=== PATIENT | female | born 1960 | race Caucasian/White ===

== ENCOUNTER 2022-10-30 16:19 | Outpatient (REF) | payer OTHER, SELFPAY ==
--- NOTE | ~2022-10-30 | XR_ITS ---
EXAMINATION: XR SHOULDER, LEFT CLINICAL INFORMATION: Left shoulder pain. COMPARISON: None TECHNIQUE: 3 views of the left shoulder. FINDINGS: There is mild loss of left AC joint space with minimal periarticular superior spurring. The glenohumeral joint space is maintained normal. No visible acute fracture, dislocation or subluxation seen. XR/XR shoulder LT min 2V IMPRESSION: Mild degenerative changes left A.C. joint. No visible acute fracture or dislocation seen.
== END 2022-10-30 16:20 | disposition home or self-care (01) ==
LOC: HO.HOSX 16:19
PROVIDERS: Visit Provider Orthopaedic Surgery
DX: M75.42 Impingement syndrome of left shoulder (principal)
CPT/HCPCS: 73030

== ENCOUNTER 2023-01-16 07:00 | Outpatient (RCR) | payer OTHER, SELFPAY ==
--- NOTE | 2022-11-07 07:57 | MHC.PT.EP ---
[facility] [place] Office [place] [facility] [place] Office [address] Finch [address] [phone] F: [phone] F: [phone] F: [phone] F: [phone] Physical Therapy Plan of Care Date of Evaluation: Date of Surgery: Diagnosis: imingement syndrome, L shoulder Assessment: 62 y/o RHD female referred to PT with L shoulder impingement. Onset of L shoulder pain after a fall on outstretched arm resulting in pain and difficulty with reaching overhead, reaching behind back, reaching overhead, sleeping, dressing and lifting. Examination shows decreased L shoulder ROM and strength, increased pain at AC joint and suprapsinatus, increased tissue tension, and impaired postural awareness. Recommend 2x/week for 6 weeks to address impairments, implement HEP, and optimize functional mobility. Frequency and Duration: The patient will be seen 2x/week for 6 weeks Short Term Goals: 3 weeks COmpliant with HEP Improve L shoulder flexion to 125 Excel Vba Developer Goals: 6 weeks I with HEP and self management of sx Pt will improve L shoulder flexion ROM to 140 to facilitate reaching overhead Pt will reports 50% decrease in pain overall (IR 2-10) Pt will demonstrate L shoulder strength to 4/5 to facilitate lifting Treatment Plan: Modalities to reduce pain, spasms and effusion. Manual therapy to restore motion and function. Therapeutic exercise to improve strength and flexibility. Neuromuscular re-education for posture and balance. Therapeutic activities to return to functional activities of daily living. Electronically signed by: Leena Bradley PT Please sign and return to therapist. Thank you for your referral.
--- NOTE | 2023-02-16 15:03 | MHC.PT.DC ---
[facility] [place] [facility] [place] [facility] [place] Office [address] Claudette Finch [address] [phone] F: [phone] F: [phone] F: [phone] F: [phone] Physical Therapy Discharge Report Diagnosis: imingement syndrome, L shoulder Date of Surgery: Date of Evaluation: 11/07/22 Date of Discharge: 02/16/23 Treatments to Date: 14 Cancellations to Date: 1 No Shows to Date: 0 Discharge Status: Improved Function Independent with HEP Discharge Summary: Overall pt has made good progress with improved shoulder A/AAROM, less pain, and improved function. Remaining limitation is shoulder IR behind the back with anterior shoulder pain during this stretch. Otherwise lifting, reaching, and pain levels have improved. Reviewed HEP and how to progress resistance independently. Placed chart on hold for 30 days in case of recurrence and at this time, will d/c chart. Electronically signed by: Leena Bradley PT Please sign and return to therapist. Thank you for your referral.
== END 2023-02-16 15:03 | disposition home or self-care (01) ==
LOC: HO.PTCHIC 07:00
PROVIDERS: Visit Provider Orthopaedic Surgery
DX: M75.42 Impingement syndrome of left shoulder (principal)
CPT/HCPCS: 97110; 97140; 97161

== ENCOUNTER 2025-02-04 15:40 | Emergency (ER) | payer OTHER, SELFPAY ==
--- NOTE | 2024-02-05 16:10 | ECG_ITS ---
Test Reason : TACHY Blood Pressure : */* mmHG Vent. Rate : 101 BPM Atrial Rate : 101 BPM P-R Int : 178 ms QRS Dur : 80 ms QT Int : 338 ms P-R-T Axes : 44 29 16 degrees QTcB Int : 438 ms Sinus tachycardia Otherwise normal ECG When compared with ECG of 04-Feb-2025 15:42, Vent. rate has decreased by [address] no longer depressed in Inferior leads ST no longer depressed in Anterolateral leads Nonspecific T wave abnormality now evident in Inferior leads Referred By: Cm San Electronically Signed By: WILLIAMS KHALIL
[2025-02-04] VITALS (7 sets, daily range): BP systolic 126–146; BP diastolic 38–87; PULSE 93–144; RESP 16–20; TEMP 36.8; O2SAT 96; BMI 23.2
--- NOTE | 2025-02-04 15:41 | ECG_ITS ---
Test Reason : TACHY Blood Pressure : */* mmHG Vent. Rate : 156 BPM Atrial Rate : * BPM P-R Int : * ms QRS Dur : 74 ms QT Int : 288 ms P-R-T Axes : * 35 93 degrees QTcB Int : 464 ms Supraventricular tachycardia Nonspecific ST and T wave abnormality Abnormal ECG When compared with ECG of 15-Nov-2007 09:38, Vent. rate has increased by [address] now depressed in Anterolateral leads Referred By: Yeny Enriquez Electronically Signed By: WILLIAMS KHALIL
--- NOTE | 2025-02-04 15:50 | ED_ITS ---
HPI - Chest Pain General Chief Complaint: Arrhythmia/Palpitations Stated Complaint: heart racing, feels like passing out Time Seen by Provider: 02/04/25 15:56 Source: patient and family Mode of arrival: ambulatory Limitations: no limitations History of Present Illness HPI narrative: This is 64 years old female presented to the emergency department with complaining of palpitation, symptoms started about an hour ago she arrived to the emergency room with a heart rate in about 150 and in SVT MD complaint: chest pain Onset (ago): hour(s) (2) Timing of current episode: constant Onset: during rest Pain location: substernal Pain radiation: none Severity: mild Quality: aching Relieving factors: nothing Exacerbating factors: nothing Risk Factors Coronary artery disease risk factors: none Related Data Previous Rx's ?Medication ?Instructions ?Recorded metoprolol succinate 25 mg 25 mg PO DAILY #30 tabs 02/04/25 tablet,extended release 24 hr (Toprol XL) Allergies Allergy/AdvReac Type Severity Reaction Status Date / Time ENVIRONMENTAL Allergy Unknown SINUS Uncoded 02/04/25 15:53 Review of Systems 2 Constitutional: Constitutional: Reports no additional constitutional complaints Cardiovascular: Cardiovascular: Reports no additional cardiovascular complaints Gastrointestinal: Gastrointestinal: Reports no additional gastrointestinal complaints [facility] Past Medical History Attestation statement: The following information was validated with the patient. [facility] Narrative: denies CAD Surgical History Hx of cholecystectomy History of repair of right rotator cuff (Unknown) Social History Social History Smoked in Last 30 Days: No Use of substances other than those prescribed or required for medical reasons: No Advance Directives: No Advance Directives Information Provided: Yes Current occupational status: employed Current occupation: Insurance company - right handed Physical Exam 2 Vital Signs: Vital Signs: Last Vital Signs Pulse 100 02/04/25 16:13 Resp 17 02/04/25 16:07 BP 130/87 02/04/25 16:13 BMI result Body Mass Index 23.2 Const: General: cooperative Nutritional Appearance: average body habitus Orientation/consciousness: patient oriented x3 Limitations: no limitations HEENT: Head: Yes normal to inspection General nose exam: Normal external nose present Face and sinus: Yes normal facial exam Mouth: Normal oral and palatal mucosa present Throat: Yes posterior oropharynx normal Neck: Neck: Yes normal visual inspection Chest: Chest palpation & inspection: normal inspection of the chest Resp: Effort & Inspection: normal respiratory effort Auscultation: clear to auscultation bilaterally Cardio: Jugular venous distension: no JVD Rate: tachycardic GI: Inspection: Yes normal to inspection Palpation (GI): Soft to palpation, not firm and nontender Auscultation: normal bowel sounds Skin: General skin exam: no rashes or lesions noted and elasticity normal L esions: no lesions Rashes: no rashes Neuro: General: patient oriented x3 Extrem: General: Yes normal to inspection Right upper extremity: normal to inspection Left upper extremity: normal to inspection Right lower extremity: normal to inspection Course Course Course Narrative: This is an RME performed by Mary Enriquez CNP: Additional HPI, ROS, PE not included below will be deferred to primary provider. Patient is a 64-year-old female who presents emergency department for evaluation. Over the past week she has been experiencing intermittent dizziness, chest tightness, palpitations. Saw her primary care doctor for this previously. This episode began approximately 45 minutes prior to arrival. Initial EKG during triage revealing SVT. Patient transferred to ED bed 1 for further evaluation and treatment Reevaluation(s) Reevaluation #1: IV adenosine given patient converted to normal sinus rhythm Time: 16:13 Reevaluation #2: Repeat EKG sinus rhythm rate 101 Time: 16:15 Reevaluation #3: Asymptomatic Time: 17:19 Medications Administered Discontinued Medications Generic Name Dose Route Start Last Admin Trade Name Freq PRN Reason Stop Dose Admin Adenosine 6 mg 02/04/25 15:56 02/04/25 16:03 Adenosine 6 Mg/2 Ml Vial IVPUSH 02/04/25 15:57 6 mg ONCE ONE Administration Lactated Ringer's 1,000 mls @ 999 mls/hr 02/04/25 16:15 02/04/25 16:10 Lr IV 02/04/25 17:15 999 mls/hr .Q1H1M MICHELE Administration Metoprolol Succinate 50 mg 02/04/25 16:06 02/04/25 16:13 Metoprolol Succinate Er 50 Mg Tab.Er.24h PO 02/04/25 16:07 50 mg ONCE ONE Administration Protocol Medical Decision Making Medical Decision Making MDM Narrative: Patient presented to the emergency department with SVT we will place an IV administer adenosine Differential Diagnosis Differential Diagnoses: The differential diagnosis associated with the presentation includes SVT/AFib/atrial flutter Admission/Observation Consideration of admission/observation: Escalation of care including admission/observation considered Lab Data 02/04/25 16:45 02/04/25 16:45 Labs: Lab Results 02/04/25 Range/Units 16:45 WBC 3.9 L (4.8-10.8) X10*3/uL RBC 4.64 (4.20-5.50) X10*6/uL Hgb 13.3 (12.0-16.0) g/dl Hct 39.9 (37.0-47.0) % MCV 86.0 (80.0-98.0) fL MCH 28.7 (27.0-33.0) pg MCHC 33.3 (31.0-35.0) g/dl RDW 13.0 (11.0-16.0) % Plt Count 203 (160-400) X10*3/uL MPV 9.5 (9.4-12.3) fL Immature Gran % (Auto) 0.0 (0.0-0.4) % Neut % (Auto) 54.8 (45-73) % Lymph % (Auto) 35.1 (20-40) % [place] % (Auto) 7.0 (2-11) % Eos % (Auto) 2.3 (0-4) % Baso % (Auto) 0.8 (0-2) % Lymph # (Auto) 1.4 (1.2-4.9) X10*3/uL [place] # (Auto) 0.3 (0.1-1.2) X10*3/uL Eos # (Auto) 0.1 (0.0-0.4) X10*3/uL Baso # (Auto) 0.0 (0.0-0.2) X10*3/uL Abs Immat Gran (auto) 0.00 (0.00-0.03) X10*3/uL Absolute Neuts (auto) 2.1 (2.0-8.3) x10*3/uL Absolute Nucleated RBC 0.000 (0.0-0.012) X10*3/uL Nucleated RBC % (auto) 0.0 (0.0-0.2) /100WBC Sodium 148 H (135-145) mmol/L Potassium 3.1 L (3.3-5.1) mmol/L Chloride 112 H (96-108) mmol/L Carbon Dioxide 26 (22-29) mmol/L Anion Gap 13 (12-20) BUN 12 (9-16) mg/dL Creatinine 0.80 (0.5-1.4) mg/dL Estim Creat Clear Calc 64.7 Estimated GFR > 60 Random Glucose 95 (60-115) mg/dL Calcium 8.6 (8.4-10.2) mg/dL Total Bilirubin 0.5 (0.0-1.0) mg/dL AST 35 H (5-31) U/L ALT 38 H (0-31) U/L Alkaline Phosphatase 105 (39-117) U/L Troponin I High Sens 5.2 (<3.5-17.0) ng/L Total Protein 5.9 L (6.5-8.0) g/dL Albumin 3.5 (3.5-5.0) g/dL Independent Interpretation I performed an independent interpretation of an: EKG Interpretation: SVT Critical Care Time Critical Care Time Critical Care Time: Yes Total Critical Care Time: 60 Attestation: SVT IV adenosine Discharge Plan Discharge Clinical Impression: SVT (supraventricular tachycardia), Acute hypokalemia Patient Disposition: Home, Self-Care Instructions: Supraventricular Tachycardia (ED) Additional Instructions: Follow-up with surgical training specialist take metoprolol as directed return if worse Prescriptions: New metoprolol succinate [Toprol XL] 25 mg tablet extended release 24 hr 25 mg PO DAILY Qty: 30 0RF Referrals: Cristhian Carrera MD [Physician] - 02/06/25 Print Language: Lithuanian
[2025-02-04] MEDS: Adenosine 6 MG/2 ML VIAL IVPUSH (16:03)
[2025-02-04] MEDS: Lactated Ringers 1,000 ML 999 ML IV (16:10)
[2025-02-04] MEDS: Metoprolol Succinate ER 50 MG TAB.ER.24H PO (16:13)
--- OUTSIDE RECORDS SUMMARY | 2025-02-04 16:24 | XMS_ITS | Patient Health Record ---
Author Organization [facility] Address [address] [place] [address] Care Team Providers Care Tool Carrier Name Role Phone Jason Aguilar MD Primary Care Provider Unavail able Black, Lisa Unavailable [phone] Allergies No Known Allergies Reason For Referral No Information Medications Medication SIG (Take, Route, Frequency, Duration) Notes Start Date End Date Status ibuprofen 1 tab Oral for 14 days PRN Active Ciclopirox Olamine 0.77 % 1 application to affected area Externally Twice a day to effected areas on feet for 30 days Active Aleve PRN Active Immunizations Vaccine Route Administration Date Status Comme nts COVID-19 [employer]/Deanna Unknown 03/23/2021 A dministered Social History Tobacco Use: Social History Observation Description Date Details (start date - stop date) Never Smoker NA - NA Tobacco Use/Smoking Question Answer Notes Are you a: nonsmoker Alcohol Screen Question Answer Notes Did you have a drink containing alcohol in the p ast year? No Points 0 Interpretation Negative Tobacco use other than smoking: Question Answer Notes Are you an other tobacco user? No Plan Of Treatment No Information Insurance Providers Payer Name Payer Address Payer Phone Subscriber Number Group Number Insured Name Patient Relationship to Insured Coverage Start Date Coverage End Date [id number] [address] [address] [place] [address] [id number] Dominic Arredondo Spouse - patient is the spouse of the insured Medical (General) History Medical History History ICD Code Back,Hip,and Knee pain covid-19 Gall bladder problems Headaches/Migraines Hiatal hernia Warts Chicken pox Surgical History Surgery Date(Month/Year) gall bladder Surgery 1979 Hiatal Hernia Surgery 2011 prolapsed bladder surgery 2018 Hospitalization History Reason Date(Month/Year) Urgent Care in [place] - Painful Nails Liftin g -Fungal Nails 11/22/21
[2025-02-04 16:50] LABS: MANUAL DIFF FLAG NO
[2025-02-04 16:51] LABS: Basophils Percent Auto 0.8 % (0-2); Eosinophils Absolute Auto 0.1 X10*3/uL (0.0-0.4); Eosinophils Percent Auto 2.3 % (0-4); Hematocrit 39.9 % (37.0-47.0); Hemoglobin 13.3 g/dl (12.0-16.0); Lymphocytes Absolute Auto 1.4 X10*3/uL (1.2-4.9); Lymphocytes Percent Auto 35.1 % (20-40); Mean Corpuscular HGB Conc 33.3 g/dl (31.0-35.0); Mean Corpuscular Hemoglobin 28.7 pg (27.0-33.0); Mean Platelet Volume 9.5 fL (9.4-12.3); Monocytes Absolute Auto 0.3 X10*3/uL (0.1-1.2); Neutrophils Absolute Auto 2.1 x10*3/uL (2.0-8.3); Neutrophils Percent Auto 54.8 % (45-73); Platelet Count 203 X10*3/uL (160-400); Red Blood Count 4.64 X10*6/uL (4.20-5.50); White Blood Count 3.9 X10*3/uL (4.8-10.8)
[2025-02-04 17:05] LABS: Alanine Aminotransferase 38 U/L (0-31); Albumin Level 3.5 g/dL (3.5-5.0); Alkaline Phosphatase 105 U/L (39-117); Anion Gap 13 (12-20); Aspartate Amino Transferase 35 U/L (5-31); Bilirubin Total 0.5 mg/dL (0.0-1.0); Blood Urea Nitrogen 12 mg/dL (9-16); Calcium 8.6 mg/dL (8.4-10.2); Carbon Dioxide 26 mmol/L (22-29); Chloride 112 mmol/L (96-108); Creatinine Clr Calc Pharmacy 64.7; Estimated Glomerular Filt Rate > 60; Glucose Random 95 mg/dL (60-115); Potassium 3.1 mmol/L (3.3-5.1); Sodium 148 mmol/L (135-145); Total Protein 5.9 g/dL (6.5-8.0)
[2025-02-04 17:12] LABS: Troponin-I High Sensitivity 5.2 ng/L (<3.5-17.0)
[2025-02-04] MEDS: Potassium Chloride ER 20 MEQ TAB.ER.PRT 40 MEQ PO (17:26)
== END 2025-02-04 17:39 | disposition home or self-care (01) ==
PROVIDERS: Emergency Medicine; Emergency Provider Emergency Medicine; PCP Physician Assistant
DX: I47.10 Supraventricular tachycardia, unspecified (principal); E87.6 Hypokalemia; R00.2 Palpitations
CPT/HCPCS: 36415; 80053; 84484; 85025; 93005; 96361; 96374; 99285; J0153; J7120

== ENCOUNTER → 2025-02-04 15:41 | Outpatient (BNV) | payer OTHER, SELFPAY | PROVIDERS: Emergency Provider Emergency Medicine; PCP Physician Assistant; Visit Provider Internal Medicine | DX: R00.0 Tachycardia, unspecified (principal); R94.31 Abnormal electrocardiogram [ECG] [EKG] | CPT/HCPCS: 93010 ==

== ENCOUNTER 2025-02-14 13:21 | Outpatient (AMB) | payer MEDICARE, SELFPAY ==
[2025-02-14 13:25] VITALS: BP 120/82; PULSE 58; BMI 23.9
--- NOTE | 2025-02-14 13:25 | A.OFFVIS_ITS ---
Vital Signs 02/14/25 13:25 Height 5 ft 6 in Weight 148 lb 2.41 oz BMI 23.9 BP 120/82 Blood Pressure Location Rt brachial Position Sitting Pulse 58 Pulse Source Monitor Intake Visit Reasons: [facility] ed fu / tachycardia/ vision not good/ dizzy Exam Proctor Required: No Escrow Secretary: Escrow Secretary Present Allergies ENVIRONMENTAL Allergy (Unknown, Uncoded 02/14/25 13:27) SINUS Medication List - Last Reconciled 02/14/25 by Rolly Estrella NP metoprolol succinate ER (Toprol XL) 25 mg PO DAILY HPI Comments Details: This is a 64-year-old female patient coming in for a hospital discharge follow- up visit. Patient with no known history of cardiomyopathy, ischemic heart disease, or coronary artery disease. The patient was recently evaluated in the emergency department for intermittent chest tightness, dizziness, and palpitations which acutely worsened while walking out wall prompting her to seek emergency care. In the ER, her initial EKG revealed SVT. She was treated with the IV adenosine and metoprolol subsequently discharged on metoprolol therapy. At today's visit, the patient reports ongoing dizziness and fatigue almost all the time. Patient denies any exertional chest pain, shortness of breath, palpitations, orthopnea, PND, leg swelling, presyncope, or syncope. She affirms her compliance with metoprolol therapy. Patient does note that she has family history of AFib and [place]. COUNT INCLUDES THE [facility] Surgical History Hx of cholecystectomy History of repair of right rotator cuff (Unknown) Social History Current occupational status: employed Current occupation: Insurance company - right handed Review of Systems ENT Reports dizziness Card Denies chest pain, Denies chest pain at rest, Denies chest pain with activity, Denies rapid heart rate, Denies pedal edema, Denies edema, Denies leg edema, Denies lightheadedness, Denies palpitations, Denies dyspnea, Denies dyspnea on exertion and Denies orthopnea Resp Denies cough, Denies dyspnea and Denies dyspnea on exertion GI Denies hematochezia and Denies change in stool character Musc Denies abnormal gait, Reports limited range of motion, Reports muscle cramps, Denies muscle weakness, Denies numbness, Denies radiating pain into limb, Denies stiffness and Denies tingling Neuro Denies abnormal gait, Reports dizziness, Denies numbness and Denies tingling Endo Denies palpitations Physical Exam Vital Signs: Last Vital Signs Pulse 58 02/14/25 13:25 BP 120/82 02/14/25 13:25 BMI result Body Mass Index 23.9 Const General: cooperative, healthy appearing, comfortable and no acute distress Orientation/consciousness: patient oriented x3 HEENT Head: Yes normal to inspection Neck Neck: Yes normal visual inspection, Yes trachea midline and Yes supple Chest Chest palpation & inspection: normal inspection of the chest Resp Effort & Inspection: normal respiratory effort Auscultation: clear to auscultation bilaterally, no crackles, no rales, no rhonchi and no wheezes Cardio Jugular venous distension: no JVD Palpation: normal PMI Rate: bradycardic Rhythm: regular rhythm Heart sounds: S1 normal heart sound present, S2 normal heart sound present, no click, no gallops, no murmurs and no rubs Peripheral pulses: Peripheral pulses 2+ throughout GI Inspection: Yes normal to inspection Palpation (GI): Soft to palpation Auscultation: normal bowel sounds Skin General skin exam: no rashes or lesions noted Neuro General: patient oriented x3 Extrem General: Yes normal to inspection, No no pedal edema and No calf tenderness Psych Appearance: grossly normal Mental Status: mental status grossly normal Speech and movement: Normal speech and movement present Office Procedures EKG Details: EKG today showed sinus bradycardia, 58 beats per minute, nonspecific STT wave, [place] HI, [place]. [id number], Complete Assessment & Plan Assessment & Plan (1) Palpitations: Code(s): R00.2 - Palpitations Category: Medical (2) SVT (supraventricular tachycardia): Code(s): I47.10 - Supraventricular tachycardia, unspecified Category: Medical (3) Dizziness: Code(s): R42 - Dizziness and giddiness Category: Medical (4) Hospital discharge follow-up: Code(s): Z09 - Encounter for follow-up examination after completed treatment for conditions other than malignant neoplasm Category: Medical Plan Initial ER EKG showed SVT with heart rate in the 150s, treated with adenosine and metoprolol. Today's EKG showed sinus bradycardia. Continue metoprolol therapy. Advised to take it at bedtime to potentially reduce daytime fatigue. With patient it is continued report of dizziness and fatigue, we will get a Holter monitor to assess for intermittent arrhythmias. Given her family history of coronary artery disease and prior episode of chest tightness, we will order a treadmill stress test to assess for ischemic disease. We will also get a e chocardiogram to evaluate for LV systolic and diastolic function, wall motion abnormalities, and valvular pathology. Repeat lipid panel with PCP portal on patient's patient showed her labs from PCP portal- reviewed lipid panel with an LDL at 80. Ideally, LDL goal closer to 70. At the ER her potassium was 3.1, now improved to 3.7 per patient portal. Advised heart healthy diet, regular exercise, adequate hydration, med compliance, and stress medication strategies. We will follow up after completion of the test. In the interim, patient will call the office with any concerns or change in symptoms. This note was generated using voice recognition software. While every effort has been made to ensure accuracy and proper ultimate hoops trainer, there may be occasional errors that could affect the content or meaning of the described symptoms. Orders: Orders ECG 7 day holter monitor Today R00.2 - Palpitations AMB EKG-In Office Today R00.2 - Palpitations CA stress test Today R00.2 - Palpitations CA echo transthoracic complete Today R00.2 - Palpitations Coding Level of Care Code Est Pt Level 4 (05474) Complex EM visit Add On G2211 Diagnoses Palpitations R00.2 SVT (supraventricular tachycardia) I47.10 Dizziness R42 Hospital discharge follow-up Z09 CPT Codes EKG - CPT: 50723-[id number], Complete ([id number]) Time Spent (min) 32 Comment Time spent in reviewing the chart, test results, assessment, counseling and documentation.
--- OUTSIDE RECORDS SUMMARY | 2025-02-14 14:26 | XMS_ITS | Patient Health Record ---
Author Organization [facility] Address [address] [place] [address] Care Team Providers Care Industry Operations Investigator Name Role Phone Jason Aguilar MD Primary Care Provider Unavail able Black, Lisa Unavailable [phone] Allergies No Known Allergies Reason For Referral [...] Insured Coverage Start Date Coverage End Date [id number] [address] [address] [place] [address] [phone] [id number] Dominic Arredondo Spouse - patient is the [...]
== END 2025-02-14 14:07 | disposition home or self-care (01) ==
LOC: HO.HCS 13:22
PROVIDERS: PCP Physician Assistant
DX: R00.2 Palpitations (principal); I47.10 Supraventricular tachycardia, unspecified; R42 Dizziness and giddiness; Z09 Encounter for follow-up examination after completed treatment for conditions other than malignant neoplasm
CPT/HCPCS: 93010; 99214; G2211

== ENCOUNTER → 2025-02-14 13:21 | Outpatient (BNVA) | payer MEDICARE, SELFPAY | PROVIDERS: PCP Physician Assistant | DX: Z09 Encounter for follow-up examination after completed treatment for conditions other than malignant neoplasm (principal); R00.2 Palpitations; R42 Dizziness and giddiness; I47.10 Supraventricular tachycardia, unspecified; R00.1 Bradycardia, unspecified | CPT/HCPCS: 93005; 99212 ==

== ENCOUNTER → 2025-04-17 07:38 | Outpatient (REF) | payer MEDICARE, SELFPAY ==
--- OUTSIDE RECORDS SUMMARY | 2025-04-17 07:39 | XMS_ITS | Patient Health Record ---
Author Organization [facility] Address [address] [place] [address] Care Team Providers Care Care Management Coordinator Name Role Phone Jason Aguilar MD Primary Care Provider Unavail able Black, Lisa Unavailable [phone] Allergies No Known Allergies Reason For Referral No Information Medications Medication SIG (Take, Route, Frequency, Duration) Notes Start Date End Date Status ibuprofen 1 tab Oral; Duration : 14 days PRN Active Ciclopirox Olamine 0.77 % 1 application to affected area Externally Twice a day to effected areas on feet; Duration: 30 days Active Aleve PRN Active Immunizations [...] Insured Coverage Start Date Coverage End Date [facility] [address] [address] [place] [address] [id number] Dominic Arredondo Spouse - patient is the [...]
--- NOTE | 2025-04-17 07:41 | CA_ITS ---
Acquisition Time: 2025-04-17 08:24:02 Total Exercise Time: 00:06:20 Test Indications: Medications: Protocol: ROBERT Max HR: 139 BPM 90% of Pred: 154 BPM Max BP: 136/72 mmHG Max Work Load: 7.5 METS Exercise stress test with exercise 6 mins 20 secs of Robert Protocol, achieving 87% MPHR, with reports of mild SOB, no chest pain, with frequent PACs, with normotensive response to exercise. Without any EKG changes meeting criteria for ischemia. In recovery, breathing improved quickly. Test reviewed with Dr. Bautista. Referred By: Rolly Estrella Electronically Signed By: Rolly Estrella
--- NOTE | 2025-04-17 07:41 | CA_ITS ---
Transthoracic Echocardiogram Patient (Last, First, Middle): Odalis Arredondo A Gender: Female Date of : 1960 Age: 64 Procedure Date: 04/17/2025 Procedure Type: Transthoracic Echocardiogram Location: OP Height: 167.64 cm Weight: 67.13 kg BSA: 1.76 m2 Heart Rate: 62 bpm BP: 120 / 80 mmHg Java Front End Web Developer: SB Referring MD: Rolly Estrella CLASSICS PROFESSOR Symptoms: R00.2 - Palpitations Study Quality: Technically Difficult/breast implants ECG Rhythm: Sinus Conclusions: - The left ventricular systolic function is low normal. The visually estimated ejection fraction is between 50-55%. - No obvious valvular pathology seen on this study. Findings Left Ventricle Normal left ventricular cavity size. The left ventricular systolic function is low normal. The visually estimated ejection fraction is between 50-55%. There is no evidence of regional wall motion abnormalities. Diastolic function is normal for age. There is mild septal and mild basal asymmetric hypertrophy. Right Ventricle Normal right ventricular cavity size and systolic function. Atria Both atria are normal in size. Aortic Valve There is a normal trileaflet aortic valve. There is no aortic valve stenosis. There is no aortic valve regurgitation. Mitral Valve The mitral valve appears normal. There is no mitral valve regurgitation. There is no mitral valve stenosis. Pulmonic Valve The pulmonic valve is likely normal. Tricuspid Valve Normal tricuspid valve structure. There is mild tricuspid valve regurgitation. There is no evidence of pulmonary hypertension. Great Vessels The asc aorta is normal in size. Venous The inferior vena cava is normal in size and collapses greater than 50% with inspiration. Pericardium/Pleural There is no evidence of pericardial effusion. Prior Study Comparison Changes noted compared to prior study dated: 11/15/2007. LVEF slightly lower than prior study. Recommendations, Care & Conclusions No obvious valvular pathology seen on this study. Measurements 2D Linear Measurements IVSd: 0.65 0.6-0.9/0.6-1.0 cm LVIDd: 4.49 3.9-5.3/4.2-5.9 cm LVIDd Index: 2.55 2.4-3.2/2.2-3.1 cm/m2 LVIDs: 3.23 2.0-3.6 cm LVPWd: 0.60 0.7-1.1 cm LA Diam: 2.80 2.7-3.8/3.0-4.0 cm LAIDs Index: 1.59 1.5-2.3 cm/m2 LV Mass: 102.75 67-162/88-224 g LV Mass Index: 58.38 43-95/49-115 g/m2 LVOT Diam: 1.90 3.0+(-)1.3 cm 2D Systolic Function EF 4C: 49.60 >55% Mitral Valve MV Pk E: 0.48 MV PK A: 0.51 MV Decel Time: 242.00 E/A: 0.90 E'Lateral: 8.05 E'Medial: 5.87 E/E' Med: 8.20 E/E' Lat: 6.00 PHT: 71.00 MVA PHT: 3.10 Decel Mcleod: 2.00 Aortic Valve AoV Pk Omar: 1.09 AoV Pk Grad: 5.00 MISTI: 2.50 LVOT LVOT Pk Omar: 0.96 LVOT Mn Omar: 0.64 LVOT VTI: 0.20 LVOT Pk Grad: 4.00 LVOT Mn Grad: 2.00 LVOT Diam: 1.90 LVOT Area: 2.84 Diastolic Function MV Pk E: 0.48 MV Pk A: 0.51 E/A: 0.90 E'Medial: 5.87 E/E' Med: 8.20 E' Laterial: 8.05 E/E' Lat: 6.00 Right Ventricle TAPSE (mm): 21.30 TVS' Omar: 11.70 Tricuspid Valve TR Pk Omar: 2.16 TR Pk Grad: 19.00 RA Press: 3.00 RVSP: 22.00 Great Vessels Aorta Sinus of Valsalva: 3.20 2.0-3.5 cm Ao Asc: 3.10 2.1-3.4 cm Pulmonary Veins Pulm Vein S/D 1.60 Pulmonary Valve PV Pk Omar: 0.75 Peak PV Grad: 2.00 Updated in Other Vendor System with Status of Final Joce Bautista MD electronically signed on 04/18/2025 10:22:51 AM with status of Final
--- NOTE | 2025-04-17 07:41 | HM_ITS ---
Conclusion: 1. Patient was monitored for total period of 7 days 2. Baseline was normal sinus rhythm with average heart of 78 beats per minute 3. Rare PACs noted 4. 3 episodes of narrow complex tachycardia, consistent with SVT, longest lasting 11 beats at 156 beats per minute 5. One reported event of wide complex tachycardia is most consistent with artifact 6. No patient reported events MTDD
== END ==
LOC: HO.CARD 07:38
PROVIDERS: PCP Physician Assistant
DX: R00.2 Palpitations (principal); R07.9 Chest pain, unspecified; I47.10 Supraventricular tachycardia, unspecified
CPT/HCPCS: 93017; 93242; 93306

== ENCOUNTER → 2025-04-17 07:41 | Outpatient (BNV) | payer MEDICARE, SELFPAY | PROVIDERS: PCP Physician Assistant | DX: I49.1 Atrial premature depolarization (principal); R06.02 Shortness of breath | CPT/HCPCS: 93016; 93018; 93306 ==

== ENCOUNTER 2025-05-03 13:01 | Outpatient (AMB) | payer MEDICARE, SELFPAY ==
[2025-05-03 13:12] VITALS: BP 120/80; PULSE 64; O2SAT 94; BMI 23.8
--- NOTE | 2025-05-03 13:12 | MHC.OFFVIS ---
Vital Signs 05/03/25 13:12 Height 5 ft 6 in Weight 147 lb 11.355 oz BMI 23.8 BP 120/80 Blood Pressure Location Lt brachial Position Sitting Pulse 64 Pulse Source Pulse Oximeter Pulse Oximetry (%) 94 Oxygen Delivery Method Room Air Intake Visit Reasons: 2 mth f/up ett, echo/ holter Intake Note: Patient presents for 2 month follow up, states she is feeling pretty good. Accompanied by: Spouse Allergies ENVIRONMENTAL Allergy (Unknown, Uncoded 02/14/25 13:27) SINUS HPI Comments Details: This is a 64-year-old female patient coming in for a follow-up visit, accompanied by her . Patient was previously in the hospital for SVT that was treated with IV adenosine and metoprolol and was subsequently discharged on metoprolol therapy. Patient had reported palpitations, dizziness and fatigue at the last visit for which patient underwent stress test, echo and a Holter study. Today patient is reporting feeling well overall and denies any exertional symptoms of chest pain, shortness breath, palpitations, dizziness, orthopnea, PND, leg edema, presyncope or syncope. Patient states that she finished a 30 day supply of metoprolol and is no longer on any medications. [facility] Surgical History Hx of cholecystectomy History of repair of right rotator cuff (Unknown) Social History Current occupational status: employed Current occupation: Insurance company - right handed Physical Exam Vital Signs: Last Vital Signs Pulse 92 05/03/25 13:12 BP 120/80 05/03/25 13:12 Pulse Ox 94 05/03/25 13:12 Oxygen Delivery Method Room Air 05/03/25 13:12 BMI result Body Mass Index 23.8 Const General: cooperative, healthy appearing, comfortable and no acute distress Orientation/consciousness: patient oriented x3 HEENT Head: Yes normal to inspection Neck Neck: Yes normal visual inspection, Yes trachea midline and Yes supple Chest Chest palpation & inspection: normal inspection of the chest Resp Effort & Inspection: normal respiratory effort Auscultation: clear to auscultation bilaterally, no crackles, no rales, no rhonchi and no wheezes Cardio Jugular venous distension: no JVD Palpation: normal PMI Rate: regular rate Rhythm: regular rhythm Heart sounds: S1 normal heart sound present, S2 normal heart sound present, no click, no gallops, no murmurs and no rubs Peripheral pulses: Peripheral pulses 2+ throughout GI Inspection: Yes normal to inspection Palpation (GI): Soft to palpation Auscultation: normal bowel sounds Skin General skin exam: no rashes or lesions noted Neuro General: patient oriented x3 Extrem General: Yes normal to inspection, No no pedal edema and No calf tenderness Psych Appearance: grossly normal Mental Status: mental status grossly normal Speech and movement: Normal speech and movement present Assessment & Plan Assessment & Plan (1) SVT (supraventricular tachycardia): Code(s): I47.10 - Supraventricular tachycardia, unspecified Category: Medical (2) Palpitations: Code(s): R00.2 - Palpitations Category: Medical Plan 04/17/2025-patient underwent stress test with a moderate workload without any chest pain or EKG changes. 04/17/2025-echo study showed a low-normal ejection fraction between 50 to 55%, with no wall motion abnormalities or valvular pathology. Patient with episode of SVT in the ER with a heart rate in the 150s which was treated with adenosine and metoprolol. Patient was discharged on metoprolol p.o. therapy. Patient states that she completed her 30 day course of metoprolol and is no longer any medications. Patient completed her Holter study however has not mailed it in yet. Given resolution of symptoms and above finding, reassuring. For the low-normal heart function, we decided to repeat in a year unless new symptoms. Clinically stable and euvolemic. Blood pressure is within normal limits. Patient also states that she would rather not be on metoprolol for now and upon discussion, we decided to defer starting this again until further information from the Holter study. Advised heart healthy diet, regular exercise, adequate hydration, stress medication strategies, avoiding stimulants and caffeinated beverages, and management of vascular risk factors. Follow up in 1 year, sooner if needed. In the interim, patient will call the office with any concerns or change in symptoms. This note was generated using voice recognition software. While every effort has been made to ensure accuracy and proper icing mixer, there may be occasional errors that could affect the content or meaning of the described symptoms. Orders: Orders CA echo transthoracic complete 1 Year I47.10 - Supraventricular tachycardia, unspecified Coding Level of Care Code Est Pt Level 4 (01946) Complex EM visit Add On G2211 Diagnoses SVT (supraventricular tachycardia) I47.10 Palpitations R00.2 Time Spent (min) 31 Comment Time spent in reviewing the chart, test results, assessment, counseling and documentation.
--- NOTE | 2025-05-03 13:12 | MHC.OFFVIS ---
Intake Visit Reasons: 2 mth f/up ett, echo/ holter Allergies ENVIRONMENTAL Allergy (Unknown, Uncoded 02/14/25 13:27) SINUS PFSH Surgical History Hx of cholecystectomy History of repair of right rotator cuff (Unknown) Social History Current occupational status: employed Current occupation: Insurance company - right handed Coding
--- OUTSIDE RECORDS SUMMARY | 2025-05-03 13:37 | XMS_ITS | Patient Health Record ---
Author Organization [facility] Address [address] [place] [address] Care Team Providers Care Chief Technology Officer Name Role Phone Jason Aguilar MD Primary Care Provider Unavail able Black, Lisa Unavailable [phone] Allergies No Known Allergies Reason For Referral [...] Insured Coverage Start Date Coverage End Date [id number] [address] [address] [place] [address] [id number] Dominic Arredondo Spouse - patient is the [...]
== END 2025-05-03 13:52 | disposition home or self-care (01) ==
LOC: HO.HCS 13:02
PROVIDERS: PCP Physician Assistant
DX: I47.10 Supraventricular tachycardia, unspecified (principal); R00.2 Palpitations
CPT/HCPCS: 99214; G2211

== ENCOUNTER → 2025-05-03 13:01 | Outpatient (BNVA) | payer MEDICARE, SELFPAY | PROVIDERS: PCP Physician Assistant | DX: I47.10 Supraventricular tachycardia, unspecified (principal); R00.2 Palpitations | CPT/HCPCS: 99212 ==